=== PATIENT | female | born 1985 | race American Indian/Alaskan Native ===

== ENCOUNTER 2022-01-28 15:48 | Emergency (ER) | payer MEDICAID ==
[2022-01-28] MEDS ORDERED: KETOROLAC 10 MG TAB PO ONE (18:35)
[2022-01-28] MEDS ORDERED: CYCLOBENZAPRINE 10 MG TAB PO ONE (18:35)
[2022-01-28] MEDS ORDERED: oxyCODONE /ACETAMINOPHEN 5-325MG TAB PO ONE (18:35)
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
[2022-01-28 19:58] VITALS: BP 142/87
== END 2022-01-28 20:52 | disposition home or self-care (01) ==
LOC: ED 15:48
DX: M54.2 Cervicalgia (principal); M25.559 Pain in unspecified hip; V89.2XXA Person injured in unspecified motor-vehicle accident, traffic, initial encounter; Y93.89 Activity, other specified; Y92.89 Other specified places as the place of occurrence of the external cause; Y99.8 Other external cause status
CPT/HCPCS: 72040; 99283